=== PATIENT | male | born 2005 | race Caucasian/White ===

== ENCOUNTER 2024-03-29 21:31 | Emergency (ER) | payer BC ==
[2024-03-29 22:01] LABS: BASOPHILS ABSOLUTE AUTO 0.04 10^3/uL (0.00-0.50); BASOPHILS PERCENT AUTO 0.5 % (0-1); EOSINOPHILS ABSOLUTE AUTO 0.08 10^3/uL (0.00-1.50); HEMATOCRIT 37.9 % (42.0-52.0); HEMOGLOBIN 13.3 g/dL (14.0-18.0); IMMATURE GRAN ABSOLUTE AUTO 0.01 10^3/uL (0.00-0.49); IMMATURE GRAN PERCENT AUTO 0.1 % (0.0-4.9); LYMPHOCYTES ABSOLUTE AUTO 2.31 10^3/uL (0.60-5.00); LYMPHOCYTES PERCENT AUTO 28.7 % (24-44); MEAN CORPUSCULAR HEMOGLOBIN 28.1 pg (27.0-32.0); MEAN CORPUSCULAR HGB CONC 35.1 g/dL (32.0-36.0); MONOCYTES ABSOLUTE AUTO 0.79 10^3/uL (0.00-1.50); MONOCYTES PERCENT AUTO 9.8 % (0-10); NEUTROPHILS ABSOLUTE AUTO 4.82 x10^3/uL (1.80-8.00); NEUTROPHILS PERCENT AUTO 59.9 % (41-71); PLATELET COUNT,PLT 250 10^3/uL (150-400); RED BLOOD CELL COUNT 4.74 x10^6/uL (4.50-6.00); WHITE BLOOD CELL COUNT,WBC 8.1 10^3/uL (4.0-11.0)
[2024-03-29] MEDS: Sodium Chloride 0.9% 1,000 ML IV ONE (22:12)
[2024-03-29 22:16] LABS: ALBUMIN 4.1 g/dL (3.4-5.0); BILIRUBIN TOTAL 0.8 mg/dL (0.0-1.0); CALCIUM 8.8 mg/dL (8.4-10.1); CREATININE 1.1 mg/dL (0.7-1.3); EST CRCL DRUG DOSING (CG) 100.15 mL/min; POTASSIUM,K 3.4 mEq/L (3.5-5.0)
[2024-03-29] MEDS: Potassium Chloride 10 MEQ Tab.ER PO ONE (22:27)
== END 2024-03-29 23:20 | disposition home or self-care (01) ==
LOC: CC.ED 21:31
DX: E86.0 Dehydration (principal); E87.6 Hypokalemia; F17.210 Nicotine dependence, cigarettes, uncomplicated
CPT/HCPCS: 36415; 80053; 83735; 84484; 85025; 85379; 96360; 99284-25; A9270-GY; J7030; U0002